=== PATIENT | male | born 1950 ===

== ENCOUNTER → 2021-08-25 15:14 | Outpatient (CLI) | payer MEDICARE, BC, SELFPAY ==
[2021-08-25 18:24] LABS: BUN Creatinine Ratio 20.8 (6-22); Blood Urea Nitrogen 16 mg/dL (9-20); Calcium 9.1 mg/dL (8.4-10.2); Carbon Dioxide 27 mmol/L (22-32); Chloride 105 mmol/L (98-107); Estimated Glomerular Filt Rate > 60.0 mL/min (>60); Glucose 116 mg/dL (80-110); HEMOLYSIS < 15 (0-50); Potassium 3.9 mmol/L (3.4-5.1); Sodium 138 mmol/L (137-145)
== END ==
PROVIDERS: Referring Provider Urology; Visit Provider Urology
DX: R31.0 Gross hematuria (principal); Z85.46 Personal history of malignant neoplasm of prostate
CPT/HCPCS: 36415; 80048; 84153

== ENCOUNTER → 2021-09-12 10:05 | Outpatient (CLI) | payer MEDICARE, BC, SELFPAY ==
--- NOTE | 2021-09-12 10:33 | DI.CT.S_ITS ---
PROCEDURE: CT ABDOMEN PELVIS WO/W CON INDICATIONS: Gross hematuria TECHNIQUE: Optional 5 mm thick noncontrast images acquired from the diaphragm to the symphysis pubis. After the administration of intravenous contrast, 5 mm thick images acquired from the diaphragm to the symphysis pubis after a 10-minute delay. 2 mm thick coronal and sagittal reformats were then performed of the kidneys and ureters. For radiation dose reduction, the following was used: automated exposure control, adjustment of mA and/or kV according to patient size. COMPARISON: None. FINDINGS: Image quality: Excellent. Lung bases: Minimal scarring at the right lung base. No pleural effusion. Heart size is normal. Urinary system: Both kidneys are normal in size, without hydronephrosis or nephrolithiasis on pre-contrast images. Cortical hypodensities in the left kidney x2 which are too small to further characterize. These most likely represent small cysts. No perinephric fat stranding. There is normal bilateral renal enhancement. Renal calyces appear normal in morphology when filled with contrast. Opacified portions of both ureters demonstrate normal caliber. Incomplete enhancement of the ureters. Bladder wall thickness is within normal limits. No calcified bladder stones. Other solid organs: Liver is normal in size. Small well-circumscribed hepatic cysts. Gallbladder is decompressed. Biliary system is non dilated. Pancreas enhances normally. Spleen is normal in size and enhancement. No adrenal nodules. Peritoneum and bowel: Bowel loops demonstrate normal wall thickness and caliber. No free fluid or air. Nodes and vessels: No retroperitoneal or mesenteric adenopathy by size criteria. Infrarenal abdominal aortic aneurysm measuring 3.9 cm. Severe calcified and noncalcified atherosclerotic plaque. 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 Abdominal wall: No ventral hernias. Pelvis: Prostate gland is surgically absent. No pathologic free pelvic fluid. No adenopathy. Fat containing right inguinal hernia. Bones: No suspicious bony lesions. No vertebral body compression fractures. Moderate DDD. Ankylosis at the anterior right SI joint. [id number] bilateral hip DJD. IMPRESSION: 1. Post prostatectomy. No fluid collection. No adenopathy. 2. No solid renal mass. Ureters are suboptimally opacified. No hydroureter. 3. No kidney stones. Dictated by: Israel Quintero M.D. on 09/12/2021 at 10:09 Approved by: Israel Quintero M.D. on 09/12/2021 at 10:21
== END ==
PROVIDERS: PCP Internal Medicine; Referring Provider Urology; Visit Provider Urology
DX: R31.0 Gross hematuria (principal); I71.4 Abdominal aortic aneurysm, without rupture; Z87.891 Personal history of nicotine dependence
CPT/HCPCS: 74178

== ENCOUNTER → 2022-05-26 09:28 | Outpatient (CLI) | payer MEDICARE, BC, SELFPAY ==
[2022-05-26 11:19] LABS: BUN Creatinine Ratio 33.3 (6-22); Blood Urea Nitrogen 23 mg/dL (9-20); Calcium 8.7 mg/dL (8.4-10.2); Carbon Dioxide 25 mmol/L (22-32); Chloride 107 mmol/L (98-107); Estimated Glomerular Filt Rate > 60 mL/min (>60); Glucose 122 mg/dL (80-110); HEMOLYSIS < 15 (0-50); Sodium 139 mmol/L (137-145)
== END ==
PROVIDERS: PCP Internal Medicine; Referring Provider Urology; Visit Provider Urology
DX: R97.21 Rising PSA following treatment for malignant neoplasm of prostate (principal); Q54.0 Hypospadias, balanic; Z85.46 Personal history of malignant neoplasm of prostate; Z87.898 Personal history of other specified conditions; Z87.448 Personal history of other diseases of urinary system; Z87.891 Personal history of nicotine dependence
CPT/HCPCS: 36415; 51798; 80048; 81002; 84153; 99214

== ENCOUNTER → 2022-06-10 08:55 | Outpatient (CLI) | payer MEDICARE, BC, SELFPAY ==
--- NOTE | 2022-06-10 | DI.NM.S_ITS ---
PROCEDURE: NM BONE SCAN WHOLE BODY RADIOPHARMACEUTICAL: 21.2 mCi Tc-99m MDP IV. INDICATIONS: R/O Prostate CA Mets TECHNIQUE: Delayed whole-body scintigrams were obtained approximately 3-4 hours after intravenous injection of radiotracer. Anterior and posterior views were acquired from vertex to feet. Additional left and right oblique views of the pelvis were obtained. COMPARISON: None. FINDINGS: There is mildly increased uptake in the right sternal border at the sternoclavicular junction, most likely degenerative in nature. Low-level increased uptake in maximum is most likely related to dental disease. No lesions are identified in skull, clavicles, scapulae, ribs, bony pelvis, and visualized shafts of the long bones. There are foci of increased uptake in cervical, thoracic and lumbar spine most likely secondary to degenerative disc and facet disease; early metastasis to spine could be obscured by degenerative changes. There are foci of increased periarticular activity, compatible with degenerative/arthritic changes. IMPRESSION: 1. Increased uptake in the right sternal border at the sternoclavicular junction, most likely degenerative in nature. Recommend radiographic correlation. 2. 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 Dictated by: Jazzy Godfrey M.D. on 06/10/2022 at 14:47 Approved by: Jazzy Godfrey M.D. on 06/10/2022 at 14:51
--- NOTE | 2022-06-10 08:57 | DI.CT.S_ITS ---
PROCEDURE: CT ABDOMEN PELVIS W CON INDICATIONS: R/O Prostate CA Mets TECHNIQUE: After the administration of oral and intravenous contrast, axial sections were acquired from the lung bases to the pubic symphysis. Coronal and sagittal reformats were performed. For radiation dose reduction, the following was used: automated exposure control, adjustment of mA and/or kV according to patient size. COMPARISON:[facility], CT, CT ABDOMEN PELVIS WO/W CON, 09/12/2021, 10:29. FINDINGS: Image quality: Excellent. Lung bases: Unremarkable. Heart: No significant findings. ABDOMEN: Liver: The liver demonstrates normal size and overall enhancement. A low-density lesion is present within hepatic segment VIII and within hepatic segment V, both of which are unchanged from the study dated September 12, 2021 and may represent simple hepatic cysts. Gallbladder: Unremarkable. Biliary ducts: Unremarkable. Pancreas: Unremarkable. Spleen: Unremarkable. Adrenal Glands: Unremarkable. Kidneys and Ureters: Unremarkable. Stomach and Bowel: Stomach, small bowel loops, and colon are unremarkable. There are scattered sigmoid diverticula. No evidence for diverticulitis. Peritoneum: No abnormal intraperitoneal fluid. No free air. Ventral Wall: No hernia. Abdominal Nodes: No retroperitoneal or mesenteric adenopathy by size criteria. Vessels: The infrarenal abdominal aorta measures 4.4 cm in diameter. This measured approximately 4.0 cm on the comparison CT dated September 12, 2021. IVC is unremarkable. The left internal iliac artery measures up to 1.8 cm in diameter. PELVIS: Pelvic Organs: Unremarkable. Multiple surgical clips are present bilaterally throughout the pelvis. Bladder: Unremarkable. Pelvic Nodes: No enlarged lymph nodes. Miscellaneous: There is a small fat containing right inguinal hernia. Bones: Unremarkable. IMPRESSION: 1. No findings to suggest new metastasis. 2. Increased size of the infrarenal abdominal aorta by 4-5 mm over a 9 month interval. Consider vascular surgery consultation and/or six-month surveillance. 3. 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 Dictated by: Bonny Ceja M.D. on 06/10/2022 at 13:35 Approved by: Bonny Ceja M.D. on 06/10/2022 at 13:42
== END ==
PROVIDERS: PCP Internal Medicine; Referring Provider Urology; Visit Provider Urology
DX: R97.21 Rising PSA following treatment for malignant neoplasm of prostate (principal); Z85.46 Personal history of malignant neoplasm of prostate; K57.30 Diverticulosis of large intestine without perforation or abscess without bleeding; I77.89 Other specified disorders of arteries and arterioles
CPT/HCPCS: 74177; 78306; A9503; Q9967

== ENCOUNTER → 2022-06-19 15:56 | Outpatient (CLI) | payer MEDICARE, BC, SELFPAY ==
--- NOTE | 2022-06-19 16:03 | DI.RAD.S_ITS ---
PROCEDURE: STERNOCLAVICULAR JOINT BI INDICATIONS: Prostate CA Mets TECHNIQUE: 3 views of the sternoclavicular joints acquired. COMPARISON: None. FINDINGS: Bones: Right worse than left bilateral sternal clavicular joint osteoarthritic changes are seen with joint space narrowing, subchondral sclerosis and small marginal osteophyte formation. No fractures or dislocations. No suspicious bony destruction or sclerosis. Soft tissues: Visualized lung apices are clear. No suspicious soft tissue calcifications or densities. 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 No obvious bony destructive lesion is noted. No soft tissue abnormalities. Dictated by: Terry Delgado M.D. on 06/19/2022 at 18:19 Approved by: Terry Delgado M.D. on 06/19/2022 at 18:20
== END ==
PROVIDERS: PCP Internal Medicine; Referring Provider Urology; Visit Provider Urology
DX: R97.21 Rising PSA following treatment for malignant neoplasm of prostate (principal); Z85.46 Personal history of malignant neoplasm of prostate; M19.012 Primary osteoarthritis, left shoulder
CPT/HCPCS: 71130

== ENCOUNTER → 2022-07-13 14:23 | Outpatient (CLI) | payer MEDICARE, BC, SELFPAY ==
[2022-07-13 15:16] LABS: Appearance Urine UA CLEAR; Bilirubin Urine UA NEGATIVE (NEGATIVE); Color Urine UA YELLOW; Glucose Urine UA NEGATIVE (Negative); Ketones Urine UA NEGATIVE (NEGATIVE); Leukocyte Esterase Urine UA TRACE (NEGATIVE); Nitrite Urine UA NEGATIVE (Negative); Occult Blood Urine UA 3+ (Negative); Protein Urine UA NEGATIVE (Negative); Urobilinogen Urine UA 0.2 E.U./dL (0.2)
[2022-07-13 15:26] LABS: RBC Urine 10-30/HPF (0-5/HPF)
[2022-07-13 15:27] LABS: Bacteria Urine None Seen; Culture Indicated Urine Specimen Cultured; Squamous Epithelial Cell Urine 1-5 /HPF (0-5/HPF); WBC Urine 1-5/HPF (0-5/HPF)
== END ==
PROVIDERS: PCP Internal Medicine; Referring Provider Urology; Visit Provider Urology
DX: Z87.448 Personal history of other diseases of urinary system (principal); Z87.898 Personal history of other specified conditions
CPT/HCPCS: 81001; 87086

== ENCOUNTER → 2022-07-24 14:20 | Outpatient (CLI) | payer MEDICARE, BC, SELFPAY ==
[2022-07-24 16:35] LABS: Prostate Specific Antigen 3.31 ng/mL (0.10-4.00)
== END ==
PROVIDERS: PCP Internal Medicine; Referring Provider Urology; Visit Provider Urology
DX: Z85.46 Personal history of malignant neoplasm of prostate (principal); R97.21 Rising PSA following treatment for malignant neoplasm of prostate
CPT/HCPCS: 36415; 84153

== ENCOUNTER → 2022-09-11 10:31 | Outpatient (CLI) | payer MEDICARE, BC, SELFPAY ==
[2022-09-11 12:05] LABS: BUN Creatinine Ratio 30.2 (6-22); Blood Urea Nitrogen 19 mg/dL (9-20); Calcium 8.8 mg/dL (8.4-10.2); Carbon Dioxide 28 mmol/L (22-32); Chloride 106 mmol/L (98-107); Estimated Glomerular Filt Rate > 60 mL/min (>60); Glucose 126 mg/dL (80-110); HEMOLYSIS < 15 (0-50); Potassium 4.1 mmol/L (3.4-5.1); Sodium 140 mmol/L (137-145)
== END ==
PROVIDERS: PCP Internal Medicine; Referring Provider Urology; Visit Provider Urology
DX: C61 Malignant neoplasm of prostate (principal); R97.21 Rising PSA following treatment for malignant neoplasm of prostate; Z01.812 Encounter for preprocedural laboratory examination
CPT/HCPCS: 36415; 80048; 84153

== ENCOUNTER → 2022-11-13 10:43 | Outpatient (CLI) | payer MEDICARE, BC, SELFPAY ==
[2022-11-13 13:31] LABS: Prostate Specific Antigen 0.388 ng/mL (0.10-4.00)
== END ==
PROVIDERS: PCP Internal Medicine; Referring Provider Urology; Visit Provider Urology
DX: C61 Malignant neoplasm of prostate (principal); R97.21 Rising PSA following treatment for malignant neoplasm of prostate
CPT/HCPCS: 36415; 84153

== ENCOUNTER → 2023-02-10 16:30 | Outpatient (CLI) | payer MEDICARE, BC, SELFPAY ==
[2023-02-10 18:41] LABS: Prostate Specific Antigen 0.335 ng/mL (0.10-4.00)
== END ==
PROVIDERS: PCP Internal Medicine; Referring Provider Urology; Visit Provider Urology
DX: R97.21 Rising PSA following treatment for malignant neoplasm of prostate (principal); C61 Malignant neoplasm of prostate
CPT/HCPCS: 84153

== ENCOUNTER → 2023-05-10 17:11 | Outpatient (CLI) | payer MEDICARE, BC, SELFPAY ==
[2023-05-10 18:25] LABS: Prostate Specific Antigen 0.255 ng/mL (0.10-4.00)
== END ==
PROVIDERS: PCP Internal Medicine; Referring Provider Urology; Visit Provider Urology
DX: C61 Malignant neoplasm of prostate (principal); R97.21 Rising PSA following treatment for malignant neoplasm of prostate
CPT/HCPCS: 36415; 84153

== ENCOUNTER → 2024-06-16 15:36 | Outpatient (CLI) | payer OTHER, SELFPAY ==
[2024-06-16 18:08] LABS: Prostate Specific Antigen 0.268 ng/mL (0.10-4.00)
== END ==
PROVIDERS: Referring Provider Urology; Visit Provider Urology
DX: R97.21 Rising PSA following treatment for malignant neoplasm of prostate (principal); Z85.46 Personal history of malignant neoplasm of prostate
CPT/HCPCS: 84153